=== PATIENT | male | born 1960 | race Caucasian/White ===

== ENCOUNTER 2023-06-11 13:32 | Emergency (ER) | payer OTHER ==
[~2023-06-11] VITALS: Ht 182.9 cm; Wt 88.5 kg
[2023-06-11 13:43] VITALS: BP 138/67; TEMP 98.7
[2023-06-11] MEDS ORDERED: AZIT250T PO (14:22)
[2023-06-11] MEDS ORDERED: CARB15DR12 EACH EAR (14:22)
[2023-06-11 14:26] VITALS: O2SAT 100
== END 2023-06-11 14:27 | disposition home or self-care (01) ==
LOC: ER 13:38
DX: H61.23 Impacted cerumen, bilateral (principal); Z60.2 Problems related to living alone